=== PATIENT | female | born 1980 | race Asian ===

== ENCOUNTER 2021-05-27 16:01 | Emergency (ER) | payer OTHER ==
[~2021-05-27] VITALS: Ht 144.8 cm; Wt 45.4 kg
[~2021-05-27 16:01] MED LIST: CIPROFLOXACIN500 M1 PO; NOHOMEMEDICATIONS; PYRIDIUM200 MG PO
[2021-05-27] MEDS ORDERED: TRANSDERM-SCOP1 EACH TRANSDERM (18:07)
[2021-05-27 18:29] VITALS: BP 118/75
== END 2021-05-27 18:30 | disposition home or self-care (01) ==
LOC: M.ERS 16:01
DX: S16.1XXA Strain of muscle, fascia and tendon at neck level, initial encounter (principal); R42 Dizziness and giddiness; Z98.890 Other specified postprocedural states; V89.2XXA Person injured in unspecified motor-vehicle accident, traffic, initial encounter; Y93.89 Activity, other specified; Y92.89 Other specified places as the place of occurrence of the external cause; Y99.8 Other external cause status